=== PATIENT | male | born 1960 | race Caucasian/White ===

== ENCOUNTER 2020-06-18 10:25 | Emergency (ER) | payer OTHER ==
[~2020-06-18] VITALS: Ht 185.4 cm; Wt 137.6 kg
--- NOTE | 2020-06-18 10:51 | ED General ---
General Chief Complaint: Eye Problems Stated Complaint: HIGH BP; DOUBLE VISION Source of Information: Patient, RN/MD (Alexa Garcia APRN) History of Present Illness Date Seen by Provider: Jun 18, 2020 Time Seen by Provider: 10:51 Initial Comments 60-year-old male presenting from the [facility] clinic. He has had increasing double vision over the last several days. He also has had some sinus pressure and congestion. He has had bloody nose with some bloody drainage especially first thing in the morning. He denies any fever or chills. He has had elevated blood pressure especially when he has been up walking. He had seen the eye doctor yesterday and was advised that he did not see anything wrong but the eye itself other than they could try to his really strong lenses to help inward turning of his eye. They were concerned that he might have something else structurally wron g and recommended he follow-up through the clinic. Today he saw Alexa Garcia in the clinic for urgent visit. When she evaluated him she was concerned that he needed emergent imaging and had called to discuss the case with me and sent him to the emergency department. The patient has been feeling fairly normal otherwise. He was just concerned about the fairly rapid onset of double vision the last several days as well as the congestion with bloody drainage at times. Allergies and Home Medications Allergies Coded Allergies: amlodipine (Verified Allergy, Unknown, 06/18/20) Causes extreme leg swelling Home Medications Amoxicillin/Potassium Clav 1 Each Tablet, 1 EACH PO BID Prescribed by: DYLLAN LÓPEZ on 06/18/20 1251 Patient Home Medication List Home Medication List Reviewed: Yes Review of Systems Review of Systems Constitutional: No chills, No fever, No malaise EENTM: see HPI, double vision, epistaxis, nose congestion; No ear discharge, No ear pain, No eye pain, No dental problems Respiratory: No cough Cardiovascular: No chest pain Gastrointestinal: no symptoms reported Genitourinary: no symptoms reported Musculoskeletal: no symptoms reported Skin: no symptoms reported Psychiatric/Neurological: Denies Headache, Denies Numbness, Denies Paresthesia Hematologic/Lymphatic: Denies Easy Bleeding, Denies Easy Bruising Past Kfyvsxs-Ikaevj-Gkchra Hx Past Med/Social Hx: Reviewed Nursing Past Med/Soc Hx Patient Social History Recent Foreign Travel: No Contact w/Someone Who Travel: No Past Medical History Respiratory: No Cardiac: Yes Hypertension Physical Exam Vital Signs Vital Signs - First Documented 06/18/20 10:35 Temp 36.8 Pulse 80 Resp 15 B/P (MAP) 160/97 (118) Pulse Ox 99 O2 Delivery Room Air Capillary Refill : Height, Weight, BMI Height: '" Weight: lbs. oz. kg; BMI Method: General Appearance: No Apparent Distress, WD/WN HEENT: PERRL/EOMI, Pharynx Normal Neck: Full Range of Motion, Normal Inspection, Non Tender, Supple Neurologic/Psychiatric: Alert, Oriented x3 Skin: Normal Color, Warm/Dry Progress/Results/Core Measures Suspected Sepsis SIRS Temperature: Pulse: Respiratory Rate: Laboratory Tests 06/18/20 11:02: White Blood Count 7.7 Blood Pressure / Mean: Laboratory Tests 06/18/20 11:02: Creatinine 1.19, INR Comment 1.0, Platelet Count 159, Total Bilirubin 0.6 Results/Orders Lab Results Laboratory Tests Test 06/18/20 11:02 Range/Units White Blood Count 7.7 4.3-11.0 10^3/uL Red Blood Count 5.65 4.35-5.85 10^6/uL Hemoglobin 16.7 13.3-17.7 G/DL Hematocrit 49 40-54 % Mean Corpuscular Volume 86 80-99 FL Mean Corpuscular Hemoglobin 30 25-34 PG Mean Corpuscular Hemoglobin Concent 34 32-36 G/DL Red Cell Distribution Width 12.9 10.0-14.5 % Platelet Count 159 130-400 10^3/uL Mean Platelet Volume 10.1 7.4-10.4 FL Immature Granulocyte % (Auto) 0 % Neutrophils (%) (Auto) 58 42-75 % Lymphocytes (%) (Auto) 29 12-44 % Monocytes (%) (Auto) 7 0-12 % Eosinophils (%) (Auto) 5 0-10 % Basophils (%) (Auto) 1 0-10 % Neutrophils # (Auto) 4.4 1.8-7.8 X 10^3 Lymphocytes # (Auto) 2.2 1.0-4.0 X 10^3 Monocytes # (Auto) 0.5 0.0-1.0 X 10^3 Eosinophils # (Auto) 0.4 H 0.0-0.3 10^3/uL Basophils # (Auto) 0.1 0.0-0.1 10^3/uL Immature Granulocyte # (Auto) 0.0 0.0-0.1 10^3/uL Prothrombin Time 13.6 12.2-14.7 SEC INR Comment 1.0 0.8-1.4 Activated Partial Thromboplast Time 28 24-35 SEC Sodium Level 139 135-145 MMOL/L Potassium Level 4.3 3.6-5.0 MMOL/L Chloride Level 103 98-107 MMOL/L Carbon Dioxide Level 23 21-32 MMOL/L Anion Gap 13 5-14 MMOL/L Blood Urea Nitrogen 16 7-18 MG/DL Creatinine 1.19 0.60-1.30 MG/DL Estimat Glomerular Filtration Rate > 60 BUN/Creatinine Ratio 13 Glucose Level 100 70-105 MG/DL Calcium Level 9.4 8.5-10.1 MG/DL Corrected Calcium 8.5-10.1 MG/DL Total Bilirubin 0.6 0.1-1.0 MG/DL Aspartate Amino Transf (AST/SGOT) 36 H 5-34 U/L Alanine Aminotransferase (ALT/SGPT) 39 0-55 U/L Alkaline Phosphatase 113 40-136 U/L Total Protein 7.6 6.4-8.2 GM/DL Albumin 4.6 H 3.2-4.5 GM/DL My Orders Orders - DYLLAN LÓPEZ MD Ct Head/Maxillofacial Wo (06/18/20 10:35) Ed Iv/Invasive Line Start (06/18/20 10:35) Cbc With Automated Diff (06/18/20 10:35) Comprehensive Metabolic Panel (06/18/20 10:35) Protime With Inr (06/18/20 10:35) Partial Thromboplastin Time (06/18/20 10:35) Ceftriaxone For Iv Use (Rocephin For I (06/18/20 12:46) Vital Signs/I&O 06/18/20 06/18/20 10:35 13:14 Temp 36.8 36.8 Pulse 80 75 Resp 15 16 B/P (MAP) 160/97 (118) 146/84 (118) Pulse Ox 99 100 O2 Delivery Room Air Capillary Refill : Progress Note #1: Progress Note patient sent from the clinic for evaluation of his abdominal distention. He had already seen the eye doctor yesterday. He was continuing to have double vision and feeling that his right eye was pointing inward. I have discussed the case with his provider from today Alexa Garcia the nurse practitioner and had seen him. She was concerned that there was something going on with his brain and skull but maybe was causing his symptoms. A CT head and face was ordered as well as some basic labs when he arrived to the ED. Progress Note #2: Progress Note no acute significant abnormality on labs. His CT scan of his head and face were also not showing any acute significant abnormality to account for his symptoms. We will refer patient back to primary for further workup and evaluation. discussed the case with his primary, JUANCHO Ellison. She plans to follow-up with him and will continue to work with him on this issue. Diagnostic Imaging Diagonstic Imaging: CT Plain Films/CT/US/NM/MRI: facial bones, head Comments NAME: JOSH LOVE [facility] REC#: [id number] PT STATUS: REG ER : 1960 PHYSICIAN: DYLLAN LÓPEZ MD ADMIT DATE: 06/18/20/ER FS Draft Date of Exam:06/18/20 CT HEAD/MAXILLOFACIAL WO CLINICAL INDICATION: Patient states she is having blurry vision and headaches. EXAMS: 1. Axial Head CT without IV contrast with sagittal and coronal reformatted images. 2. Axial Maxillofacial CT scan without IV contrast with sagittal and coronal reformations. Auto Exposure Controls were utilized during the CT exam to meet ALARA standards for radiation dose reduction. COMPARISON: None. FINDINGS: HEAD CT AND MAXILLOFACIAL CT: There is no evidence of acute cerebral infarct, intracranial hemorrhage, or gross mass effect. The brain parenchymal volume appears appropriate for patient's age. There are subtle focal patchy areas of low-attenuation white matter changes involving both cerebral hemispheres, likely representing mild chronic small vessel ischemic disease. There is normal ricks-white matter distinction. There is no significant midline shift or herniation. The visualized [place] vascular structures have normal flow void appearance. There is no evidence of hydrocephalus. The basal cisterns are unremarkable. The skull, extracranial soft tissue, and orbits are unremarkable. There is a small mucus retention cyst in the right maxillary sinus and minimal mucosal thickening in the right maxillary sinus. There is minimal mucosal thickening involving the left maxillary sinus. There is minimal mucosal thickening involving the sphenoid sinus. There is mild mucosal thickening involving the ethmoid sinus. There is minimal leftward nasal septal deviation. The mastoid air cells are clear. IMPRESSION: 1. Unremarkable CT scan of the brain for age with no evidence of acute intracranial process. There is mild chronic small vessel ischemic disease. 2. There is mild paranasal sinus disease. Dictated on workstation # [id number] Dict: 06/18/20 1132 Trans: 06/18/20 1143 [id number] Interpreted by: KRISTINA CHEN MD Electronically signed by: Departure Impression Primary Impression: Paranasal sinus disease Additional Impressions: Double vision Labile hypertension Disposition: 01 HOME, SELF-CARE Condition: Stable Departure-Patient Inst. Decision time for Depature: 12:48 Referrals: [facility]/JULIUS (PCP) Primary Care Physician SOPHIE ELLISON APRN (Family) Primary Care Physician Patient Instructions: Double Vision (DC), High Blood Pressure (DC), Sinusitis, Adult (DC) Add. Discharge Instructions: Use a humidifier at bedside to help keep your sinuses and airways moist while sleeping. Take the full course of antibiotics to help with sinus congestion and inflammation. Check with Sophie Ellison for further evaluation All discharge instructions reviewed with patient and/or family. Voiced understanding. Scripts Amoxicillin/Potassium Clav (Amox Tr-K Clv 875-125 mg Tab) 1 Each Tablet 1 EACH PO BID for sinusitis for 10 Days, #20 TAB 0 Refills Prov: DYLLAN LÓPEZ MD 06/18/20 DYLLAN LÓPEZ MD Jun 18, 2020 10:51
[2020-06-18 11:16] LABS: WHITE BLOOD COUNT 7.7 10^3/uL (4.3-11.0)
[2020-06-18 11:17] LABS: BASOPHILS # (AUTO) 0.1 10^3/uL (0.0-0.1); BASOPHILS % (AUTO) 1 % (0-10); EOSINOPHILS # (AUTO) 0.4 10^3/uL (0.0-0.3); EOSINOPHILS % (AUTO) 5 % (0-10); HEMATOCRIT 49 % (40-54); HEMOGLOBIN 16.7 G/DL (13.3-17.7); LYMPHOCYTES # (AUTO) 2.2 X 10^3 (1.0-4.0); LYMPHOCYTES % (AUTO) 29 % (12-44); MEAN CORPUSCULAR HEMOGLOBIN 30 PG (25-34); MEAN CORPUSCULAR HGB CONC 34 G/DL (32-36); MEAN CORPUSCULAR VOLUME 86 FL (80-99); MEAN PLATELET VOLUME 10.1 FL (7.4-10.4); MONOCYTES # (AUTO) 0.5 X 10^3 (0.0-1.0); MONOCYTES % (AUTO) 7 % (0-12); NEUTROPHILS # (AUTO) 4.4 X 10^3 (1.8-7.8); NEUTROPHILS % (AUTO) 58 % (42-75); PLATELET COUNT 159 10^3/uL (130-400)
[2020-06-18 11:30] LABS: ALANINE AMINOTRANSFERASE 39 U/L (0-55); ALBUMIN 4.6 GM/DL (3.2-4.5); ALKALINE PHOSPHATASE 113 U/L (40-136); BILIRUBIN,TOTAL 0.6 MG/DL (0.1-1.0); BUN/CREATININE RATIO 13; CALCIUM 9.4 MG/DL (8.5-10.1); CARBON DIOXIDE 23 MMOL/L (21-32); CHLORIDE 103 MMOL/L (98-107); CREATININE SERUM 1.19 MG/DL (0.60-1.30); GFR ESTIMATED > 60; GLUCOSE 100 MG/DL (70-105); POTASSIUM 4.3 MMOL/L (3.6-5.0); SODIUM 139 MMOL/L (135-145); TOTAL PROTEIN 7.6 GM/DL (6.4-8.2)
--- NOTE | 2020-06-18 11:43 | Diagnostic Imaging Report ---
CLINICAL INDICATION: Patient states she is having blurry vision and headaches. EXAMS: 1. Axial Head CT without IV contrast with sagittal and coronal reformatted images. 2. Axial Maxillofacial CT scan without IV contrast with sagittal and coronal reformations. Auto Exposure Controls were utilized during the CT exam to meet ALARA standards for radiation dose reduction. COMPARISON: None. FINDINGS: HEAD CT AND MAXILLOFACIAL CT: There is no evidence of acute cerebral infarct, intracranial hemorrhage, or gross mass effect. The brain parenchymal volume appears appropriate for patient's age. There are subtle focal patchy areas of low-attenuation white matter changes involving both cerebral hemispheres, likely representing mild chronic small vessel ischemic disease. There is normal ricks-white matter distinction. There is no significant midline shift or herniation. The visualized [place] vascular structures have normal flow void appearance. There is no evidence of hydrocephalus. The basal cisterns are unremarkable. The skull, extracranial soft tissue, and orbits are unremarkable. There is a small mucus retention cyst in the right maxillary sinus and minimal mucosal thickening in the right maxillary sinus. There is minimal mucosal thickening involving the left maxillary sinus. There is minimal mucosal thickening involving the sphenoid sinus. There is mild mucosal thickening involving the ethmoid sinus. There is minimal leftward nasal septal deviation. The mastoid air cells are clear. IMPRESSION: 1. Unremarkable CT scan of the brain for age with no evidence of acute intracranial process. There is mild chronic small vessel ischemic disease. 2. There is mild paranasal sinus disease. Dictated by: Dictated on workstation # [id number]
[2020-06-18 11:57] LABS: PROTHROMBIN TIME PATIENT 13.6 SEC (12.2-14.7)
[2020-06-18] MEDS ORDERED: cefTRIAXone FOR IV USE 1,000 MG in WATER (STERILE) FOR INJECTION 10 ML IV STA (12:46)
[2020-06-18] MEDS ORDERED: AMOX1TAB12 PO (12:51)
[2020-06-18 13:14] VITALS: BP 146/84
== END 2020-06-18 13:01 | disposition home or self-care (01) ==
LOC: ER FS 10:29
DX: J34.89 Other specified disorders of nose and nasal sinuses (principal); H53.2 Diplopia; I10 Essential (primary) hypertension; Z88.8 Allergy status to other drugs, medicaments and biological substances
CPT/HCPCS: 36415; 70450; 70486; 80053; 85025; 85610; 85730

== ENCOUNTER → 2021-05-07 | Outpatient (CLI) | payer OTHER ==
[~2021-05-07] VITALS: Ht 185.4 cm; Wt 134.8 kg
[~2021-05-07] MED LIST: ACETAMINOPHEN 500 MG TAB (TYLENOL) PO PRN; AMOX1TAB12 PO; CASIRIVIMAB/IMDEVIMAB 1,200 MG in NS (IVPB) 250 ML IV ONE; EPINEPHrine INJECTION 1 MG/ML AMP IM PRN; ONDANSETRON 4 MG/2 ML (SDV) Z0FRAN IV PRN; diphenhydrAMINE 50 MG/ML INJ (BENADRYL) IV PRN
[2021-05-07 09:04] VITALS: BP 137/78
[2021-05-07 10:50] VITALS: BP 125/68
== END ==
LOC: INFUSION 09:00
PROVIDERS: ATTEND Nurse Practitioner Family
DX: U07.1 COVID-19 (principal)

== ENCOUNTER → 2021-05-19 | Outpatient (CLI) | payer OTHER ==
[~2021-05-19] MED LIST changes: -ACETAMINOPHEN 500 MG TAB (TYLENOL) PO PRN; -CASIRIVIMAB/IMDEVIMAB 1,200 MG in NS (IVPB) 250 ML IV ONE; -EPINEPHrine INJECTION 1 MG/ML AMP IM PRN; -ONDANSETRON 4 MG/2 ML (SDV) Z0FRAN IV PRN; -diphenhydrAMINE 50 MG/ML INJ (BENADRYL) IV PRN
--- NOTE | 2021-05-19 17:41 | Diagnostic Imaging Report ---
EXAMINATION: Chest 2 view HISTORY: DYSPNEA, HISTORY OF COVID-19 COMPARISON: None available. FINDINGS: Heart size and pulmonary vasculature are normal. There are patchy interstitial and airspace opacities seen throughout both lungs. No pleural effusion or pneumothorax. Degenerative changes of the thoracic spine. Osseous structures are otherwise intact. IMPRESSION: 1. Patchy interstitial and airspace opacities of both lungs compatible with history of COVID-19 and pneumonia. Dictated by: Dictated on workstation # [id number]
== END ==
LOC: RAD FS 14:06
PROVIDERS: ATTEND Nurse Practitioner Family
DX: R91.8 Other nonspecific abnormal finding of lung field (principal); R06.00 Dyspnea, unspecified; Z86.16 Personal history of COVID-19; Z87.01 Personal history of pneumonia (recurrent)
CPT/HCPCS: 71046

== ENCOUNTER → 2021-06-01 | Outpatient (CLI) | payer OTHER ==
--- NOTE | 2021-06-01 13:56 | Diagnostic Imaging Report ---
INDICATION: COVID followup. COMPARISON: 05/19/2021 FINDINGS: Frontal and lateral radiographic views of the chest were obtained and demonstrate persistent, but overall improved scattered patchy coarse interstitial opacities. Subpleural nodular opacity is also noted within the lateral right midlung. No large effusion or pneumothorax is seen. Cardiac silhouette and pulmonary vasculature are within normal limits. Osseous structures show no acute abnormalities. IMPRESSION: 1. Persistent, but improved bilateral interstitial infiltrate. 2. Nodular subpleural opacity within the lateral right midlung, which is also likely on the basis of residual infiltrate. Followup to resolution however is recommended to exclude underlying soft tissue nodule. Dictated by: Dictated on workstation # [id number]
== END ==
LOC: RAD FS 13:25
PROVIDERS: ATTEND Nurse Practitioner Family
DX: U07.1 COVID-19 (principal); R91.8 Other nonspecific abnormal finding of lung field
CPT/HCPCS: 71046